=== PATIENT | female | born 1995 | race Caucasian/White ===

== ENCOUNTER 2017-10-01 15:22 | Emergency (ER) | payer MEDICAID ==
--- NOTE | 2017-10-01 19:49 | Discharge Summary ---
DATE OF DISCHARGE: 10/01/2017 TIME SEEN: 4:40 p.m. HOSPITAL COURSE: EKG was done, I looked at it right away. It shows normal sinus rhythm, no evidence of any ischemia. There is suggestion of possible left atrial enlargement, but one cannot be sure from looking at this EKG, so I should say this is a normal looking EKG, nonspecific nondiagnostic Q-waves in the inferior wall. Otherwise, the patient here is looking normal. The patient will be discharged for home. No medication is needed at the present moment and the cause of the pain is muscular pain above the left breast and below the left shoulder area without any radiation, without any trauma. She had yoga done before visit that played any role, I cannot say. The patient should take some Tylenol on a p.r.n. basis, 2 tablets 2-3 times a day as needed when the pain goes away and she should stop taking the medications. JOB# [id number]
--- NOTE | 2017-10-01 19:55 | ER Physician Documentation ---
DATE OF SERVICE: 10/01/2017 EMERGENCY ROOM EVALUATION AND TREATMENT This patient is a 21-year-old female. She is weighing 55.38 kilograms. Body surface area is 1.53 sq. m. This is a 21-year-old female patient. She said she did not do anything and she had done yoga 2 days ago. From yesterday, she started having pain in the left upper side of the shoulder on the left side above the left breast. The patient does not have any pain radiating to any other places. The patient has never had any angina pectoris, myocardial infarction, rheumatic fever, and never had any similar kind of pain before. HISTORY OF PRESENT ILLNESS: The patient had done yoga and maybe she thinks that this might be exacerbated because of yoga, but the pain does not radiate anywhere else. The patient is in normal sinus rhythm, no arrhythmias. The patient feels comfortable. REVIEW OF SYSTEMS: Reveals: EYES: No history of double vision, blurring, or blindness. CENTRAL NERVOUS SYSTEM: No history of TIA, stroke, encephalitis, meningitis, intracranial tumors, masses, hemorrhage, epilepsies, or tumors. GI MERRITT: No history of diarrhea, constipation, vomiting, upper GI bleeding, esophageal varices, liver disease. ENDOCRINE: No history of diabetes mellitus, hypothyroidism or hyperthyroidism. HEART: No history of rheumatic fever, valvular heart disease, pericardial disease, cardiomyopathy. PULMONARY: No history of pneumonia, TB, pulmonary embolism, COPD, emphysema, bronchitis. BONES AND JOINTS: No apparent complaints. GENITOURINARY: No burning, frequency, or dysuria. No complaints, no tumors. Menstrual cycle appears to be within normal limits. HEMATOLOGY/ONCOLOGY: The patient appeared to be within normal limits. The patient never had leukemia, lymphoma, any bone cancer, or multiple myeloma etc. PERSONAL HISTORY: The patient is single. She has no children. She has no abortions. She has no surgeries done. SURGERIES: None. FAMILY HISTORY: Father has hypertension. MEDICATIONS: Unknown. PHYSICAL EXAMINATION: VITAL SIGNS: Done by the charge nurse, the TPR vital signs were done, temperature 97.9, pulse of 79, respirations 18, blood pressure 114/72, oxygen saturation 98.1%. Height of 5 feet 1 inches, weight 222 pounds. Last menstrual period 09/21/2017, tetanus toxoid was given. The patient has pain of 6/10. When I examined her, did not find that much amount of pain. CHEST: Clear without any rales, rhonchi, or bronchial breathing. ABDOMEN: Soft, benign, and negative. HEART: Normal heart sounds . Second heart sound is physiologically split. Third heart sound is absent. Heart reveals that the patient has pain over the left breast area below the shoulder, it is nothing to do with the shoulder, nothing to do with the breast, it is in between the breast and the left upper shoulder and there is some slight pain more deeper palpation. Otherwise, no pain. GENITOURINARY: Benign and negative. Costovertebral angle is normal. CLINICAL IMPRESSION: The patient has atypical left-sided chest pain, which is above the left breast. Otherwise, the patient has no other complaints. We will get an EKG done. The patient has normal sinus rhythm, no arrhythmias are detected. Once we see the EKG if it is normal, the patient will be discharged home and no further treatment will be necessary for the patient. [facility]# [id number]
== END 2017-10-01 17:26 | disposition home or self-care (01) ==
LOC: ER 15:22
DX: R07.89 Other chest pain (principal)
CPT/HCPCS: 93005; Z7502

== ENCOUNTER 2018-09-08 13:30 | Emergency (ER) | payer MEDICAID ==
--- NOTE | 2018-09-08 14:01 | ED Physician Chart ---
ED Chief Complaint/HPI - Patient Information Date Seen:: 09/08/18 Time Seen:: 13:43 Chief Complaint:: cough and congestion History of Present Illness:: PATIENT PRESENTS TO THE ER WITH HX OF COUGH AND CONGESTION WITH FEVER FOR FOUR DAYS; NASAL CONGESTION. She works in the food industry. Allergies:: Allergies Allergy/AdvReac Type Severity Reaction Status Date / Time No Known Allergies Allergy Verified 10/01/17 15:41 Vitals:: Vital Signs - 8 hr 09/08/18 13:43 Temp 98.3 F HR 93 RR 17 BP 102/65 O2 Sat % 97 Historian:: Patient Review:: Nurse's Note Reviewed ED Review of Systems - Review of Systems General/Constitutional: Fever, No chills, No weight loss, No weakness, No diaphoresis, No edema, No loss of appetite Skin: No skin lesions, No rash, No bruising Head: No headache, No light-headedness Eyes: No loss of vision, No pain, No diplopia ENT: No earache, Nasal drainage, No sore throat, No tinnitus Neck: No neck pain, No swelling, No thyromegaly, No stiffness, No mass noted Cardio Vascular: No chest pain, No palpitations, No PND, No orthopnea, No edema Pulmonary: No SOB, No cough, No sputum, No wheezing GI: No nausea, No vomiting, No diarrhea, No pain, No melena, No hematochezia, No constipation, No hematemesis G/U: No dysuria, No frequency, No hematuria Musculoskeletal: No bone or joint pain, No back pain, No muscle pain Endocrine: No polyuria, No polydipsia Psychiatric: No prior psych history, No depression, No anxiety, No suicidal ideation, No homicidal ideation, No auditory hallucination, No visual hallucination Hematopoietic: No bruising, No lymphadenopathy Allergic/Immuno: No urticaria, No angioedema Neurological: No syncope, No focal symptoms, No weakness, No paresthesia, No headache, No seizure, No dizziness, No confusion, No vertigo ED Past Medical History - Past Medical History Obtainable: Yes Past Medical History: No significant medical hx Family Medical History - Family Member Father Ethnicity: Living Status: Still Living Hx Family Hypertension: Yes ED Physical Exam - Physical Examination General/Constitutional: Awake, Well-developed, well-nourished, Alert, No distress, GCS 15, Non-toxic appearing, Ambulatory Head: Atraumatic Eyes: Lids, conjuctiva normal, PERRL, EOMI Skin: Nl inspection, No rash, No skin lesions, No ecchymosis, Well hydrated, No lymphadenopathy ENMT: External ears, nose nl, TM canals nl, Nasal exam nl, Lips, teeth, gums nl , Oropharynx nl, Tonsils nl Other ENMT comments:: NASAL DISCHARGE Neck: Nontender, No nuchal rigidity, No mass, No stridor Respiratory: Nl effort/Exclusion, Clear to Auscultation, No Wheeze/Rhonchi/Rales Cardio Vascular: RRR, No murmur, gallop, rubs, NL S1 S2 GI: No tenderness/rebounding/guarding, No organomegaly, No hernia, Normal BS's, Nondistended, No mass/bruits, No McBurney tenderness : No CVA tenderness Extremities: No tenderness or effusion, Full ROM, normal strength in all extremities, No edema, Normal digits & nails Neuro/Psych: Alert/oriented, Normal sensory exam, Normal motor strength, Judgement/insight normal, Mood normal, Normal gait, No focal deficits Misc: Normal back, No paraspinal tenderness ED Septic Shock - . Is Septic Shock (SBP<90, OR Lactate>4 mmol\L) present?: No - <6hrs of presentation: Vital Signs: Vital Signs - 8 hr 09/08/18 13:43 Temp 98.3 F HR 93 RR 17 BP 102/65 O2 Sat % 97 ED Reassessment (Disposition) - Reassessment Reassessment Condition:: Unchanged - Diagnosis Diagnosis:: Viral syndrome. Sinusitis. - Aftercare/Follow up Instructions Aftercare/Follow-Up Instructions:: Refer to Discharge Instructions Notes:: follow up with primary care physician as needed. work note given for off until Tuesday. follow a bland diet. Medication Prescribed:: Augmentin for sinusitis. - Patient Disposition Discharge/Transfer:: Home Condition at Disposition:: Stable, Unchanged
== END 2018-09-08 15:01 | disposition home or self-care (01) ==
LOC: ER 13:30
DX: B34.9 Viral infection, unspecified (principal); J32.9 Chronic sinusitis, unspecified
CPT/HCPCS: 99283; 96372 ×2; J1885; J0696; Z7502

== ENCOUNTER 2019-04-20 17:50 | Emergency (ER) | payer MEDICAID ==
--- NOTE | 2019-04-20 19:42 | ED Physician Chart ---
ED Chief Complaint/HPI - Patient Information Date Seen:: 04/20/19 Time Seen:: 19:40 Chief Complaint:: sore throat History of Present Illness:: 23 yr old female with sore throat for one day with pain malaise no fever no nv Allergies:: Allergies Allergy/AdvReac Type Severity Reaction Status Date / Time No Known Allergies Allergy Verified 10/01/17 15:41 Vitals:: Vital Signs - 8 hr 04/20/19 18:15 Temp 99.4 F HR 93 RR 16 BP 118/81 O2 Sat % 100 ED Review of Systems - Review of Systems General/Constitutional: No fever, No chills, No weight loss, No weakness, No diaphoresis, No edema, No loss of appetite Skin: No skin lesions, No rash, No bruising Head: No headache, No light-headedness Eyes: No loss of vision, No pain, No diplopia ENT: Sore throat Neck: No neck pain, No swelling, No thyromegaly, No stiffness, No mass noted Cardio Vascular: No chest pain, No palpitations, No PND, No orthopnea, No edema Pulmonary: No SOB, No cough, No sputum, No wheezing GI: No nausea, No vomiting, No diarrhea, No pain, No melena, No hematochezia, No constipation, No hematemesis G/U: No dysuria, No frequency, No hematuria Musculoskeletal: No bone or joint pain, No back pain, No muscle pain Endocrine: No polyuria, No polydipsia Psychiatric: No prior psych history, No depression, No anxiety, No suicidal ideation Hematopoietic: No bruising, No lymphadenopathy Allergic/Immuno: No urticaria, No angioedema Neurological: No syncope, No focal symptoms, No weakness, No paresthesia, No headache, No seizure, No dizziness, No confusion, No vertigo ED Past Medical History - Past Medical History Past Medical History: No significant medical hx Family Medical History - Family Member Father History Unknown: Yes Ethnicity: Living Status: Still Living Hx Family Hypertension: Yes ED Physical Exam - Physical Examination Other ENMT comments:: post pharyngeal reddness ED Assessment - Assessment General Assessment: pharyngitis ED Septic Shock - . Is Septic Shock (SBP<90, OR Lactate>4 mmol\L) present?: No - <6hrs of presentation: Vital Signs: Vital Signs - 8 hr 04/20/19 18:15 Temp 99.4 F HR 93 RR 16 BP 118/81 O2 Sat % 100 ED Reassessment (Disposition) - Reassessment Reassessment:: pharyngitis - Diagnosis Diagnosis:: pharyngitis - Aftercare/Follow up Instructions Aftercare/Follow-Up Instructions:: Counseled pt regarding lab results/diagnosis & need follow up Medication Prescribed:: amox - Patient Disposition Discharge/Transfer:: Home Condition at Disposition:: Stable
== END 2019-04-20 19:45 | disposition home or self-care (01) ==
LOC: ER 17:50
DX: J02.9 Acute pharyngitis, unspecified (principal)
CPT/HCPCS: Z7502

== ENCOUNTER 2019-05-17 12:17 | Emergency (ER) | payer MEDICAID ==
--- NOTE | 2019-05-17 12:46 | ED Physician Chart ---
ED Chief Complaint/HPI - Patient Information Date Seen:: 05/17/19 Time Seen:: 12:35 Chief Complaint:: dysuria History of Present Illness:: Patient had onset last night of dysuria and lower abdominal pain. She also has slight hematuria. She has urge for frequent urination with the production of a small amount of urine. No chills, fever, backache or vomiting. Allergies:: Allergies Allergy/AdvReac Type Severity Reaction Status Date / Time No Known Allergies Allergy Verified 05/17/19 12:26 Vitals:: Vital Signs - 8 hr 05/17/19 12:26 Temp 97.8 F HR 75 RR 18 BP 122/63 O2 Sat % 97 Historian:: Patient Review:: Nurse's Note Reviewed ED Review of Systems - Review of Systems General/Constitutional: No fever, No chills Skin: No skin lesions Head: No headache Eyes: No loss of vision ENT: No earache Neck: No neck pain, No swelling Cardio Vascular: No chest pain, No palpitations Pulmonary: No SOB GI: No nausea, No vomiting, No diarrhea G/U: Dysuria, Frequency, Hematuria Musculoskeletal: No bone or joint pain Endocrine: No polyuria, No polydipsia Psychiatric: No prior psych history Hematopoietic: No bruising Allergic/Immuno: No urticaria Neurological: No syncope, No focal symptoms ED Past Medical History - Past Medical History Past Medical History: No significant medical hx Family History: HTN Social History: Non Smoker, No Alcohol Surgical History: None Psychiatricy History: None Medication: None Family Medical History - Family Member Father History Unknown: Yes Ethnicity: Living Status: Still Living Hx Family Hypertension: Yes ED Physical Exam - Physical Examination General/Constitutional: Awake, Well-developed, well-nourished, Alert, No distress Head: Atraumatic Eyes: Lids, conjuctiva normal, PERRL Skin: Nl inspection, No rash, No skin lesions, No ecchymosis ENMT: External ears, nose nl, TM canals nl, Nasal exam nl, Lips, teeth, gums nl , Oropharynx nl, Tonsils nl Neck: No nuchal rigidity Respiratory: Nl effort/Exclusion, Clear to Auscultation, No Wheeze/Rhonchi/Rales Cardio Vascular: RRR, No murmur, gallop, rubs, NL S1 S2 GI: No organomegaly, No hernia, Normal BS's, Nondistended, No mass/bruits, No McBurney tenderness Other GI comments:: Suprapubic tenderness : No CVA tenderness Extremities: Normal digits & nails Neuro/Psych: No focal deficits Misc: No paraspinal tenderness ED Assessment - Assessment General Assessment: Patient has hemorrhagic cystitis and was encouraged to drink a lot of water. ED Septic Shock - <6hrs of presentation: Vital Signs: Vital Signs - 8 hr 05/17/19 12:26 Temp 97.8 F HR 75 RR 18 BP 122/63 O2 Sat % 97 ED Reassessment (Disposition) - Reassessment Reassessment Condition:: Unchanged - Diagnosis Diagnosis:: Hemorrhagic cystitis - Aftercare/Follow up Instructions Aftercare/Follow-Up Instructions:: Refer to Discharge Instructions
[2019-05-17 12:56] LABS: URINE SOURCE MIDSTREAM
[2019-05-17 12:59] LABS: URINE BILIRUBIN NEGATIVE (NEGATIVE); URINE BLOOD LARGE (NEGATIVE); URINE GLUCOSE (UA) NEGATIVE (NEGATIVE); URINE KETONE NEGATIVE (NEGATIVE); URINE LEUKOCYTE ESTERASE SMALL (NEGATIVE); URINE MICROSCOPIC INDICATED? YES; URINE NITRATE POSITIVE (NEGATIVE); URINE PH 5.5 (4.6 - 8.0); URINE PROTEIN 100 mg/dL (NEGATIVE); URINE UROBILINOGEN 0.2 E.U./dL (0.2 - 1.0)
[2019-05-17 13:03] LABS: URINE COLOR YELLOW
[2019-05-17 13:04] LABS: URINE CLARITY TURBID (CLEAR)
[2019-05-17 13:13] LABS: URINE BACTERIA 2+ /hpf (NONE SEEN); URINE EPITHELIAL CELLS FEW /lpf (FEW)
[2019-05-17 13:14] LABS: URINE WBC 25-50 /hpf (0-5)
== END 2019-05-17 13:35 | disposition home or self-care (01) ==
LOC: ER 12:17
DX: N30.91 Cystitis, unspecified with hematuria (principal)
CPT/HCPCS: 81001-TC; 81025-TC; 87086-90; Z7502